=== PATIENT | female | born 1955 | race African-American/Black ===

== ENCOUNTER 2019-11-19 17:20 | Inpatient (IN) | payer MEDICARE, MEDICAID ==
[~2019-11-19] VITALS: Ht 165.1 cm; Wt 145.6 kg
[2019-11-19 18:45] LABS: Basophils # (auto) 0 10 ^3/uL (0-0.2); Basophils % (auto) 0.4 % (0.0-2.0); Eosinophils # (auto) 0.1 10 ^3/uL (0-0.8); Eosinophils % (auto) 1.8 % (0.0-7.0); Hematocrit 32.1 % (36.0-46.0); Hemoglobin 10.6 g/dL (12.2-16.2); Lymphocytes # (auto) 0.8 10 ^3/uL (0.4-5.4); Lymphocytes % (auto) 12.9 % (10.0-50.0); Mean Corpuscular Hgb Conc. 33.1 g/dL (32.0-36.0); Mean Corpuscular Volume 102.8 fL (80.0-100.0); Monocytes # (auto) 0.7 10 ^3/uL (0-1.3); Monocytes % (auto) 11.8 % (0.0-12.0); Neutrophils # (auto) 4.6 10 ^3/uL (1.6-8.6); Neutrophils % (auto) 73.1 % (37.0-80.0); Platelet Count (auto) 203 10^3/uL (140-450); Red Blood Cells 3.12 10^6/uL (4.0-5.20); Red Cell Distribution Width 14.2 % (11.8-14.3); White Blood Cell 6.2 10^3/uL (4.4-10.8)
[2019-11-19] MEDS ORDERED: ALBUTEROL SULF 2.5 MG/0.5ML(0.5%) NEB SOLN NEB ONE (18:45)
[2019-11-19] MEDS ORDERED: IPRATROPIUM BROM 0.5 MG/2.5ML INH SOL NEB ONE (18:45)
[2019-11-19] MEDS ORDERED: ACETAMINOPHEN 325 MG TAB PO ONE (18:45)
[2019-11-19 19:00] LABS: INR 1.02 (0.9-1.15); Partial Thromboplastin Time 26.6 sec (23.64-32.05)
[2019-11-19 19:05] LABS: Albumin 3.4 g/dL (3.4-5.0); Calcium 8.5 mg/dL (8.5-10.1); Magnesium 2.2 mg/dL (1.6-2.6); Potassium 4.2 mmol/L (3.5-5.1)
[2019-11-19 19:10] LABS: BUN/Creatinine Ratio 4.1; Bilirubin, Total 0.4 mg/dL (0.2-1.0); Total Protein 8.6 g/dL (6.4-8.2)
[2019-11-19] MEDS ORDERED: FUROSEMIDE 40 MG/4 ML VIAL IV ONE (20:30)
[2019-11-19] MEDS ORDERED: NITROGLYCERIN 0.4 MG SL TAB SL PRN (21:45)
[2019-11-19] MEDS ORDERED: ONDANSETRON HCL 4 MG/2 ML VIAL IV PRN (21:45)
[2019-11-19] MEDS ORDERED: ENOXAPARIN SOD 100 MG/1 ML SYRINGE SC ONE (21:45)
[2019-11-19] MEDS ORDERED: MORPHINE SULF INJ 2 MG/ML SYRINGE 1ML IV PRN (21:45)
[2019-11-19] MEDS ORDERED: TEMAZEPAM 15 MG CAP PO PRN (21:45)
[2019-11-19] MEDS ORDERED: DEXTROSE (50%) 50ML SYRG IV PRN (21:45)
[2019-11-19 23:00] VITALS: BP 91/56
--- NOTE | 2019-11-19 23:00 | NUR ---
Telemetry admit from [facility] admitted to Telemetry unit. Patient oriented to room, bed, and unit policies regarding patient care and visiting hours. Patient now on continuous telemetry monitoring, tele box # 60 and telemetry reading on arrival to unit is [facility]. Patient placed on bedside oxygen, weighed by bedscale and encouraged to call if they need something. All questions and concerns addressed, patient verbalized understanding.
--- NOTE | 2019-11-19 23:45 | NUR ---
Respiratory note: PT SEEN AND ASSESSED FOR PRN MED NEB TX AT 2345. TX IS NOT INDICATED AT THIS TIME, PT IS CURRENTLY SLEEPING WITH NO SIGNS OF DISTRESS. HR 111 RR 18 SP02 98% ON 2L NASAL CANNULA.
[2019-11-19] MEDS: ATORVASTATIN 20 MG TAB PO SCH (23:51)
[2019-11-19] MEDS: ACCU-CHEK COMFORT CURVE STRIP VI SCH (23:52)
[2019-11-20] VITALS (9 sets, daily range): BP systolic 90–149; BP diastolic 42–87
--- NOTE | 2019-11-20 04:11 | NUR ---
UNABLE TO OBTAIN PATIENT'S CURRENT MEDICATION LIST AT THIS TIME. PATIENT ONLY RESPONDING TO SOME YES OR NO QUESTIONS. PATIENT STATES THEY CANNOT REMEMBER WHAT MEDICATIONS THEY TAKE. WILL ATTEMPT AT A LATER TIME.
[2019-11-20] MEDS: InsuLIN REG 1unit/0.01ml Soln (100units/ml) SC SCH ×4 (06:00→18:11)
[2019-11-20] MEDS: ACCU-CHEK COMFORT CURVE STRIP VI SCH ×3 (06:03→18:12)
[2019-11-20] MEDS: FUROSEMIDE 40 MG/4 ML VIAL IV SCH ×2 (06:03→18:12)
[2019-11-20] MEDS: SEVELAMER 800 MG TAB PO SCH ×3 (08:56→18:11)
[2019-11-20] MEDS: cefTRIAXone 1GM/50ML D5W 50 ML IV SCH (08:56)
[2019-11-20] MEDS: ACETAMINOPHEN 325 MG TAB PO PRN ×2 (08:57→21:52)
[2019-11-20] MEDS: B-COMPLEX W/ C & FOLIC ACID(NEPHROVITE TAB) PO SCH (09:33)
[2019-11-20] MEDS: PANTOPRAZOLE 40 MG TAB PO SCH (09:33)
[2019-11-20] MEDS: METOPROLOL TARTRATE 25 MG TAB PO SCH ×2 (09:45→10:00)
[2019-11-20] MEDS ORDERED: ASPirin 81 mg TAB PO SCH (10:00)
[2019-11-20] MEDS ORDERED: LOSARTAN POTASSIUM 25 MG TAB PO SCH (10:00)
[2019-11-20] MEDS ORDERED: METOPROLOL TARTRATE 25 MG TAB PO SCH (10:00)
--- NOTE | 2019-11-20 10:04 | NUR ---
Respiratory note: ASSESSED PT FOR PRN MEDNEB TX. HR 108, RR 20, SPO2 97% ON 3LPM NASAL CANNULA. BREATH SOUNDS CLEAR THROUGHOUT. PT DENIES ANY SOB. NO S/S OF RESPIRATORY DISTRESS NOTED. MEDNEB TX NOT INDICATED AT THIS TIME. PT AWARE OF PRN MEDNEB TXS, ADVISED PT TO CALL FOR RT IF NEEDED. PT VERBALIZED UNDERSTANDING.
[2019-11-20 10:11] LABS: Basophils # (auto) 0 10 ^3/uL (0-0.2); Basophils % (auto) 0.5 % (0.0-2.0); Eosinophils # (auto) 0.1 10 ^3/uL (0-0.8); Lymphocytes # (auto) 1.3 10 ^3/uL (0.4-5.4); Monocytes # (auto) 1.1 10 ^3/uL (0-1.3); Neutrophils # (auto) 2.9 10 ^3/uL (1.6-8.6); Nucleated Red Blood Cells % 0.1 %; Red Cell Distribution Width 14.1 % (11.8-14.3); White Blood Cell 5.4 10^3/uL (4.4-10.8)
[2019-11-20 10:13] LABS: Eosinophils % (auto) 1.3 % (0.0-7.0); Hematocrit 29.4 % (36.0-46.0); Hemoglobin 9.9 g/dL (12.2-16.2); Lymphocytes % (auto) 24.6 % (10.0-50.0); Mean Corpuscular Hemoglobin 34.5 pg (28.0-32.0); Mean Corpuscular Hgb Conc. 33.6 g/dL (32.0-36.0); Mean Corpuscular Volume 102.5 fL (80.0-100.0); Neutrophils % (auto) 53.3 % (37.0-80.0); Platelet Count (auto) 193 10^3/uL (140-450); Red Blood Cells 2.87 10^6/uL (4.0-5.20)
[2019-11-20 10:25] LABS: Monocytes % (auto) 20.3 % (0.0-12.0)
[2019-11-20 11:05] LABS: Albumin 3.1 g/dL (3.4-5.0); Calcium 8.7 mg/dL (8.5-10.1)
[2019-11-20 11:07] LABS: BUN/Creatinine Ratio 4.4
[2019-11-20 11:13] LABS: Bilirubin, Total 0.4 mg/dL (0.2-1.0); Potassium 4.4 mmol/L (3.5-5.1); Total Protein 7.9 g/dL (6.4-8.2)
[2019-11-20] MEDS: ALBUTEROL SULF 2.5 MG/0.5ML(0.5%) NEB SOLN NEB PRN (11:22)
--- NOTE | 2019-11-20 11:22 | NUR ---
Respiratory note: RT CALLED TO BEDSIDE. PT COMPLAINING OF SOB. MEDNEB TX GIVEN, PT TOLERATED WELL, NO ADVERSE REACTIONS NOTED. BREATH SOUNDS CLEAR/DIMINISHED. NO S/S OF RESPIRATORY DISTRESS NOTED. RN AT BEDSIDE.
[2019-11-20 12:06] LABS: Phosphorus 3.2 mg/dL (2.5-4.90); Uric Acid 3.7 mg/dL (2.6-6.0)
[2019-11-20] MEDS ORDERED: AZITHROMYCIN 250 MG TAB PO ONE ×2 (16:00→17:00)
--- NOTE | 2019-11-20 19:21 | NUR ---
Respiratory note: ASSESSMENT FOR PRN MED NEB TX. HR 99, SPO2 93% ON ROOM AIR, RR 16, BS DIMINISHED. PT PRESENTING NO RESPIRATORY DISTRESS AT THIS TIME, SLEEPING COMFORTABLY. MED NEB TX NOT INDICATED. WILL CONTINUE TO MONITOR.
--- NOTE | 2019-11-20 19:41 | NUR ---
Opening Shift Note Assumed care of patient. Pt awake, alert and orientated x [address]. No S/S of distress/SOB or pain. Bed is in lowest position with side rails up x 2. Bed brakes are locked and call light is with in reach. Hob is 30 degrees. Instructed on POC and to call for assist PRN, will continue to monitor for changes Q1hr and PRN.
[2019-11-20] MEDS: DOXYCYCLINE 100 MG TAB/CAP PO SCH (21:53)
[2019-11-20] MEDS: ATORVASTATIN 20 MG TAB PO SCH (21:53)
[2019-11-21] VITALS (32 sets, daily range): BP systolic 59–139; BP diastolic 40–74
[2019-11-21] MEDS: ACCU-CHEK COMFORT CURVE STRIP VI SCH ×4 (00:40→17:53)
[2019-11-21] MEDS: FUROSEMIDE 40 MG/4 ML VIAL IV SCH ×3 (06:00→17:53)
[2019-11-21] MEDS: InsuLIN REG 1unit/0.01ml Soln (100units/ml) SC SCH ×4 (06:00→17:48)
[2019-11-21] MEDS ORDERED: SODIUM CHL 0.9% 1000 ML BAG XX ONE (07:00)
--- NOTE | 2019-11-21 07:50 | NUR ---
OPENING NOTE ASSUMED CARE OF PT. ALERT AND ORIENTED. NO S/S OF SOB/DISTRESS NOTED. SAFETY PRECAUTIONS IN PLACE. BED SET TO LOWEST POSITION/LOCKED, BEDSIDE RAILS UP X2, CALL LIGHT WITHIN REACH. INSTRUCTED PT TO CALL FOR ASSISTANCE. UPDATED ON POC. PT VERBALIZED UNDERSTANDING. WILL CONTINUE TO MONITOR Q1HR AND PRN. Addendum: 11/21/19 at 1136 by Britney Hernandez RN WRONG PATIENT
[2019-11-21] MEDS: SEVELAMER 800 MG TAB PO SCH ×3 (08:00→17:56)
--- NOTE | 2019-11-21 08:17 | NUR ---
Respiratory note: ASSESSMENT FOR PRN MED NEB TX. HR 90, SPO2 94% ON ROOM AIR, RR 18, BS DIMINISHED. PT PRESENTING NO RESPIRATORY DISTRESS AT THIS TIME, SLEEPING COMFORTABLY. MED NEB TX NOT INDICATED. PATIENT KNOWS TO HAVE RT PAGED IF TX IS NEEDED.
[2019-11-21 08:48] LABS: Basophils # (auto) 0 10 ^3/uL (0-0.2); Basophils % (auto) 0.5 % (0.0-2.0); Eosinophils # (auto) 0 10 ^3/uL (0-0.8); Eosinophils % (auto) 0.8 % (0.0-7.0); Hemoglobin 10.3 g/dL (12.2-16.2); Lymphocytes # (auto) 1.6 10 ^3/uL (0.4-5.4); Monocytes # (auto) 0.6 10 ^3/uL (0-1.3); Neutrophils # (auto) 3.3 10 ^3/uL (1.6-8.6); Nucleated Red Blood Cells % 0.1 %
[2019-11-21 08:51] LABS: Hematocrit 31.1 % (36.0-46.0); Lymphocytes % (auto) 28.2 % (10.0-50.0); Mean Corpuscular Hemoglobin 33.9 pg (28.0-32.0); Mean Corpuscular Volume 102.9 fL (80.0-100.0); Monocytes % (auto) 10.7 % (0.0-12.0); Neutrophils % (auto) 59.8 % (37.0-80.0); Platelet Count (auto) 143 10^3/uL (140-450); Red Blood Cells 3.02 10^6/uL (4.0-5.20); Red Cell Distribution Width 14.2 % (11.8-14.3); White Blood Cell 5.6 10^3/uL (4.4-10.8)
[2019-11-21] MEDS: cefTRIAXone 1GM/50ML D5W 50 ML IV SCH (09:00)
[2019-11-21 09:06] LABS: Albumin 3.4 g/dL (3.4-5.0); BUN/Creatinine Ratio 4.6; Calcium 8.2 mg/dL (8.5-10.1); Potassium 4.2 mmol/L (3.5-5.1)
[2019-11-21 09:15] LABS: Bilirubin, Total 0.3 mg/dL (0.2-1.0); Total Protein 8.5 g/dL (6.4-8.2)
[2019-11-21] MEDS ORDERED: AZITHROMYCIN 250 MG TAB PO SCH (10:00)
[2019-11-21] MEDS: ASPirin 81 mg TAB PO SCH (10:31)
[2019-11-21] MEDS: B-COMPLEX W/ C & FOLIC ACID(NEPHROVITE TAB) PO SCH (10:31)
[2019-11-21] MEDS: ENOXAPARIN SOD 30 MG/0.3 ML SYRINGE SC SCH (10:31)
[2019-11-21] MEDS: PANTOPRAZOLE 40 MG TAB PO SCH (10:32)
[2019-11-21] MEDS: DOXYCYCLINE 100 MG TAB/CAP PO SCH ×2 (10:32→21:24)
[2019-11-21] MEDS: METOPROLOL TARTRATE 25 MG TAB PO SCH (10:33)
--- NOTE | 2019-11-21 11:12 | NUR ---
Shift opening note Assumed care of patient. Pt is a middle of the dialysis process. She is awake, alert, and orientated x 4. Hemodynamic parameters are within normal limits. No S/S of distress/SOB or pain. Bed side rails up x 2. Bed brakes are locked and call light is within reach. Hob is 30 degrees. POC was discussed with the patient and patient was instructed to call for assistance PRN. Will continue to monitor for changes Q1hr and PRN.
[2019-11-21 11:40] LABS: Urine Bacteria FEW /hpf (None Seen); Urine Blood 1+ /uL (Negative); Urine Hyaline Cast MANY /lpf (0 - 2); Urine Specific Gravity 1.023 (1.001-1.035); Urine WBC 93 /hpf (0 - 5)
[2019-11-21 12:07] LABS: Hepatitis B Surface Antibody Negative
[2019-11-21 12:17] LABS: Hepatitis A Total Antibody Negative
[2019-11-21 13:09] LABS: Hepatitis A Ab IgM Negative
[2019-11-21 13:10] LABS: Hepatitis B Core IgM Negative; Hepatitis B Core Total AB Negative; Hepatitis B Surface Antigen Negative (Negative); Hepatitis C Antibody Negative (Negative)
[2019-11-21] MEDS ORDERED: SODIUM CHLORIDE 0.9% 250 ML IV ONE (13:45)
--- NOTE | 2019-11-21 14:00 | NUR ---
PAGED DR. GARRETT RE: BP 70/60, AWAITING CALL BACK. WILL CONTINUE TO MONITOR.
--- NOTE | 2019-11-21 14:15 | NUR ---
Midline Placement: Patient educated on need for midline placement. All risks and benefits explained and all questions and concerns addresses prior to procedure. 18g/10cm midline inserted via right cephalic vein using Ultrasound. Sterile technique utilized. Blood return obtained from lumen and flushed easily with NS using proper technique. Midline secured with saline lock; biodisc and occlusive dressing applied. Primary RN notified. Midline lot #[id number]
--- NOTE | 2019-11-21 14:30 | NUR ---
SPOKE TO DR. GARRETT RE: BP 70/60. NEW ORDERS GIVEN/CARRIED OUT.
--- NOTE | 2019-11-21 15:00 | NUR ---
BP 1500: REASSESSED 83/57 1515: REASSESSED 8850 1530: REASSESSED PAGED DR. GARRETT RE: BP , NEW ORDERS GIVEN TO TRANSFER TO ICU.
--- NOTE | 2019-11-21 16:00 | NUR ---
TRANSFER PATIENT IS BEING TRANSFER TO ICU, ROOM 110 WITH YURI SABILLON. REPORT GIVEN TO RN.
--- NOTE | 2019-11-21 16:30 | NUR ---
RECEIVED PATIENT FROM TELEMETRY BLOOD PRESSURE WITH MAP < 60 STARTED LEVOPHED AT 2 MCG/MIN.
[2019-11-21] MEDS: NOREPINEPHRINE 8 MG/250ML KIT 250 ML IV SCH (16:49)
--- NOTE | 2019-11-21 18:39 | NUR ---
PATIENT ALERT AND ORIENTED UNABLE TO SPEAK DUE TO HIS TRACHEOSTOMY WHICH PATIENT IS COUBHING THICK YELLOW SPUTUM. PATIENT REMAINED COARSE AFEBRILE. TRACH COLLAR 30 % #8 SHILEY OXYGEN SAT 100 % PATIENT TOLERATING 30 % OF FI02 WITHOUT THE VENTILATOR.NGT INTACT DR BERNARDO CRUZ AND D/C TF BUT KEPT THE NGT. PATIENT ON ASPIRATION PRECAUTIONS. TOLERATING PUREED DIET AT BREAKFAST BUT ONLY ATE 10% FOR LUNCH. STALLWORTH CATHETER DRAINING DARK RICA COLOR URINE. Addendum: 11/21/19 at 1852 by Alysa Gonzales RN RN THIS NOTE IS SUPPOSE TO BE ON MR LAINEZ Addendum: 11/21/19 at 1857 by Alysa Gonzales RN RN AMEND NOTE WRONG PATIENT DISREGARD LAST NOTE.
--- NOTE | 2019-11-21 18:45 | NUR ---
PT CHECKED FOR PRN TX. PT IS RESTING WITH NO ACUTE DISTRESS NOTED. TX IS NOT INDICATED AT THIS TIME. HR 91 RR 20 POX 99% ON 4LNC. B/S DECREASED WITH CRACKLES. WILL CHECK BACK ON PT.
--- NOTE | 2019-11-21 20:00 | NUR ---
ADMITTED WITH ELEVATED TROPONIN LEVELS, DYSPNEA, COARSE COUGH AND LOWER EXTREMITY SWELLING. ALERT. ORIENTED. SPEECH IS CLEAR. ON 4LNP. O2 SAT 100%. DECREASED THE OXYGEN TO 1LNP. NOW THE O2 SATURATION IS 98%. WHEN SHE COUGHS, SHE DESATURATES. LUNGS DIMINISHED AND SLIGHTLY COARSE. NSR WITHOUT ECTOPY. BORDERLINE 1ST DEGREE AV BLOCK. RENAL DIET: REFUSED HER DINNER TRAY AND LATER ASKED FOR TEA AND RUPINDER CRACKERS. OLIGURIC. BILATERAL LEG SWELLING 2+. ALL PULSES PALPABLE. LEFT UPPER ARM FISTULA WITH + THRILL AND BRUIT. HAS A NEW MIDLINE TODAY IN THE RIGHT UPPER ARM. LEVOPHED AT 0.5. LEELA CATHETER IN THE RIGHT UPPER CHEST. WAS ON THE FLOOR AND DROPPED HER BLOOD PRESSURE DURING DIALYSIS. PLACED ON LEVOPHED AND BROUGHT HERE. DIALYSIS REMOVED 2.8 LITERS OF FLUID. DIETARY EDUCATION GIVEN.
[2019-11-21] MEDS ORDERED: EPOETIN ALFA 4,000 UNIT/ML VL SC ONE (21:00)
--- NOTE | 2019-11-21 22:00 | NUR ---
HELPED HER WITH TURNING ON THE TV AND CHANGING CHANNELS. NONPRODUCTIVE COUGH. COARSE COUGH. NO NAUSEA. 1 LNP WITH O2 SATURATION OF 97%. LEVOPHED REMAINS AT .5 MCG/MIN. SYSTOLIC BP BETWEEN 104 AND 110.
[2019-11-22] VITALS (65 sets, daily range): BP systolic 94–128; BP diastolic 19–84
--- NOTE | 2019-11-22 | NUR ---
AWAKE. DENIES PAIN. FOOT RUB GIVEN. NSR WITHOUT ECTOPY. LUNGS DIMINISHED. NONPRODUCTIVE COARSE COUGH. SPEECH CLEAR. ALL PULSES PALPABLE.BORDERLINE FIRST DEGREE AV BLOCK. HAS NOT VOIDED YET
[2019-11-22] MEDS: ACCU-CHEK COMFORT CURVE STRIP VI SCH ×5 (00:24→23:54)
--- NOTE | 2019-11-22 02:00 | NUR ---
UP TO COMMODE. HAD A SMALL BM AND A SMALL VOID. USED HER WALKER TO GET UP. STABLE ON HER FEET. SHE NEEDS HELP GETTING UP TO A SITTING POSITION AND A LYING POSITION. C/O OF SOME NAUSEA. REFUSED ZOFRAN. EMESIS BAG NEAR LEFT HAND. LEVOPHED OFF. NO CHANGE IN HER PITTING EDEMA. ALL EXTREMITIES WARM. ALL PULSES ARE PALPABLE.
--- NOTE | 2019-11-22 03:10 | NUR ---
AM LABS DRAWN.
--- NOTE | 2019-11-22 04:00 | NUR ---
SMALL EMESIS. REFUSING BATH. IS ON CLEAN LINENS.
--- NOTE | 2019-11-22 05:33 | NUR ---
IRREGULAR BREATHING PATTERN. RR 25-40, UP AND DOWN. OCCASIONALLY THE SATURATIONS FOLLOW THE UP AND DOWN PATTERN. SLEEPING AT THE MOMENT.
[2019-11-22] MEDS: InsuLIN REG 1unit/0.01ml Soln (100units/ml) SC SCH ×5 (06:00→23:53)
[2019-11-22] MEDS: FUROSEMIDE 40 MG/4 ML VIAL IV SCH ×2 (06:00→17:23)
--- NOTE | 2019-11-22 06:00 | NUR ---
ACCUCHECK NORMAL. HELD LASIX DUE TO LOWER BLOOD PRESSURE AND THE FACT THAT SHE IS FRESHLY OFF OF LEVOPHED.
--- NOTE | 2019-11-22 06:33 | NUR ---
Respiratory note: ROUTINE PRN ASSESSMENT DONE. HR 107, RR 20, POX 94%, BS ARE CLR. NO SOB OR DISTRESS NOTED AT THIS TIME. PT WAS NOTIFY TO HAVE RN PAGE RT FOR MN TX.
[2019-11-22] MEDS: SEVELAMER 800 MG TAB PO SCH ×2 (08:00→08:11)
[2019-11-22] MEDS: cefTRIAXone 1GM/50ML D5W 50 ML IV SCH (08:11)
--- NOTE | 2019-11-22 10:18 | NUR ---
Patient refused to eat today and refused her renagel po. this morning
[2019-11-22] MEDS: B-COMPLEX W/ C & FOLIC ACID(NEPHROVITE TAB) PO SCH (10:29)
[2019-11-22] MEDS: DOXYCYCLINE 100 MG TAB/CAP PO SCH ×2 (10:29→22:18)
[2019-11-22] MEDS: METOPROLOL TARTRATE 25 MG TAB PO SCH (10:31)
[2019-11-22] MEDS: ASPirin 81 mg TAB PO SCH (10:31)
[2019-11-22] MEDS: PANTOPRAZOLE 40 MG TAB PO SCH (10:31)
[2019-11-22] MEDS: ENOXAPARIN SOD 30 MG/0.3 ML SYRINGE SC SCH (10:32)
--- NOTE | 2019-11-22 11:10 | NUR ---
Patient was seen by Dr Paz and notified of the ct scan not done but tomorrow. Dr Paz wanted the ct chest with contrast done today Dr Baxter was notified and he agreed to have the chest ct done [facility] because she will be dialyzed on Monday . Consent was signed by the patient ant procedure was done .
[2019-11-22] MEDS ORDERED: IOHEXOL 350 MG/ML 100ML IJ ONE (11:28)
[2019-11-22 12:40] LABS: BUN/Creatinine Ratio 5.3; Calcium 8.1 mg/dL (8.5-10.1); Potassium 4.6 mmol/L (3.5-5.1)
[2019-11-22 12:43] LABS: Bilirubin, Total 0.4 mg/dL (0.2-1.0); Total Protein 7.6 g/dL (6.4-8.2)
--- NOTE | 2019-11-22 15:00 | NUR ---
DR BOB CALLED RE: PATIENT NOTIFIED OF THE CT CHEST RESULT WITH ANGIO AND HE GAVE ORDERS FOR THE PATIENT
[2019-11-22] MEDS: NOREPINEPHRINE 8 MG/250ML KIT 250 ML IV SCH (16:23)
--- NOTE | 2019-11-22 18:15 | NUR ---
RT NOTE PT WAS SEEN BY RT FOR HHN AND CPT TX. PT TOLERATES HHN WELL VIA MASK WITHOUT ADVERSE REACTION NOTED. PT TOLERATED 15 MINUTES OF CPT DONE WITH THE PERCUSSION MODE ON THE BED WELL. PT HAS A NOTED PRODUCTIVE COUGH. CONT ORDERED Addendum: 11/22/19 at 1917 by Ora Mayers RT Amended: Links added.
[2019-11-22] MEDS: ALBUTEROL SULF 2.5 MG/0.5ML(0.5%) NEB SOLN NEB SCH ×2 (18:20→22:33)
--- NOTE | 2019-11-22 18:27 | NUR ---
DR FARIAS WAS NOTIFIED OF THE LABS RESULT PATIENT WILL HAVE DIALYSIS IN THE MORNING.
--- NOTE | 2019-11-22 19:25 | NUR ---
report received from Josephine smith
--- NOTE | 2019-11-22 20:29 | NUR ---
received from Mrs Christian WELCH stabel, alert and oriented. No sob observed
--- NOTE | 2019-11-22 22:26 | NUR ---
RT NOTE PT WAS SEEN BY RT FOR HHN AND CPT. PT TOLERATES HHN WELL VIA MASK. CPT DONE WITH MODE ON BED. PT TOLERATES WELL. PT HAS A NOTED PRODUCTIVE COUGH. ENCOURAGED PT TO SPIT OUT PHLEGM NOT SWALLOW IT. CONT ORDERED Addendum: 11/22/19 at 2305 by Ora Mayers RT Amended: Links added.
[2019-11-22] MEDS: ACETYLCYSTEINE 10 %(100MG/ML) SOL 4ML NEB SCH (22:33)
[2019-11-23] VITALS (48 sets, daily range): BP systolic 88–123; BP diastolic 40–89
--- NOTE | 2019-11-23 01:56 | NUR ---
RT NOTE PT WAS SEEN BY RT FOR HHN AND CPT TX. PT TOLERATE WELL VIA MASK. PT TOLERATES CPT WITH MODE ON BED. CONT ORDERED Addendum: 11/23/19 at 0340 by Ora Mayers RT Amended: Links added.
[2019-11-23] MEDS: ALBUTEROL SULF 2.5 MG/0.5ML(0.5%) NEB SOLN NEB SCH ×6 (02:07→21:54)
--- NOTE | 2019-11-23 03:15 | NUR ---
Sleeping on rouns and in no acute resp. distress
[2019-11-23 04:39] LABS: Albumin 3.1 g/dL (3.4-5.0); Potassium 4.6 mmol/L (3.5-5.1)
[2019-11-23 04:50] LABS: BUN/Creatinine Ratio 5.2; Bilirubin, Total 0.4 mg/dL (0.2-1.0); Calcium 8.4 mg/dL (8.5-10.1); Total Protein 7.8 g/dL (6.4-8.2)
[2019-11-23] MEDS: FUROSEMIDE 40 MG/4 ML VIAL IV SCH ×2 (05:42→18:00)
[2019-11-23] MEDS: InsuLIN REG 1unit/0.01ml Soln (100units/ml) SC SCH ×3 (05:43→18:00)
[2019-11-23] MEDS: ACETYLCYSTEINE 10 %(100MG/ML) SOL 4ML NEB SCH ×3 (06:08→21:54)
[2019-11-23] MEDS: ACCU-CHEK COMFORT CURVE STRIP VI SCH ×3 (06:14→18:00)
--- NOTE | 2019-11-23 06:15 | NUR ---
pT IS OBESE AND BARELY CAN TURN HERSELF. ABLE TO TURN WITH NURSE ASSISTANCE EVERY 2 HOURS. REPOSITIONED WITH ASSISTANCE. GIVEN COMPLETE BATH, GOOD PERINILA CARE AND TOTAL LINEN CHANGE. mIDLINE IS INTACT AND PATENT. NO SEVERE SOB
--- NOTE | 2019-11-23 07:59 | NUR ---
RECEIVED REPORT FROM THE TALENT DEVELOPMENT DIRECTOR. PATIENT SLEEPING COMFORTABLY REMAINED ON OXYGEN AT 2 LITERS/ NC . PATIENT REFUSED BREAKFAST AND SAID SHE JUST WANTED FRUITS DIETARY WAS NOTIFIED. PATIENT HAD CHEST XRAY DONE AT THE BEDSIDE.
[2019-11-23] MEDS: cefTRIAXone 1GM/50ML D5W 50 ML IV SCH (08:33)
[2019-11-23] MEDS: METOPROLOL TARTRATE 25 MG TAB PO SCH (10:00)
[2019-11-23] MEDS: PANTOPRAZOLE 40 MG TAB PO SCH (10:13)
[2019-11-23] MEDS: DOXYCYCLINE 100 MG TAB/CAP PO SCH ×2 (10:13→21:35)
[2019-11-23] MEDS: B-COMPLEX W/ C & FOLIC ACID(NEPHROVITE TAB) PO SCH (10:13)
[2019-11-23] MEDS: ASPirin 81 mg TAB PO SCH (10:13)
[2019-11-23] MEDS: SEVELAMER 800 MG TAB PO SCH ×3 (10:13→18:40)
[2019-11-23] MEDS: ENOXAPARIN SOD 30 MG/0.3 ML SYRINGE SC SCH (10:14)
[2019-11-23] MEDS: FLORASTOR (S. BOULARDII) 250 MG CAP PO SCH (12:53)
--- NOTE | 2019-11-23 18:26 | NUR ---
DIALYSIS NURSE CAME AND STARTED THE PROCEDURE. THE HD NURSE SAID THAT HE USED THE SC LEELA CATH .
--- NOTE | 2019-11-23 18:33 | NUR ---
PATIENT HAD 3 LOOSE STOOLS TO . UNABLE TO SEND STOOL FOR C DIFF DUE TO THE STOOL BEING FOERMED
--- NOTE | 2019-11-23 19:30 | NUR ---
Opening Shift Note Assumed care of patient, awake and alert, lying in bed with high umaña, H/D ongoing via a Santana catheter at the right subclavian. Breathing on O2NC 2LPM, slightly shallow breathing and diminished lung sounds, No S/S of distress/SOB, occasional cough. Encouraged a deep breathing exercise, Pt complied well. Denied pain. Mid-line at right upper arm, flushed well with blood return, CDI site. Bed in low position, call light within reach, fall and safety precaution in place, all alarms are audible. Instructed on POC, procedure and to call for assist PRN, will continue to monitor for changes Q1hr and PRN.
--- NOTE | 2019-11-23 20:09 | NUR ---
H/D done H/D nurse reported 2L output from H/D. Pt's condition and VSS.
--- NOTE | 2019-11-23 20:20 | NUR ---
Dinner Provided Pt with dinner after heat the food. Pt independent while eating. Condition stable, occasionally cough. Continue care. Addendum: 11/24/19 at 0027 by Cesar Montalvo RN Pt ate main dish ~60%. Half a cup of tea. Tolerated well.
--- NOTE | 2019-11-23 21:55 | NUR ---
Vomiting Pt vomited food after dinner. Pt refused vomiting medicine. Pt wanted to vomit out so that she feels better. Other condition stable. Recommended Pt to small frequent meal instead, Pt verbalized understanding. Continue care.
--- NOTE | 2019-11-23 22:26 | NUR ---
Respiratory note: PT REFUSE MED NEB AT THIS TIME. PT SAYS SHE VOMITED PRIOR TO REFUSING. STATES SHE WILL TAKE HER NEXT SCHEDULED MED NEB. NO DISTRESS NOTED. PULSE OX 97% ON 2LNC, HR 116, RR 20
--- NOTE | 2019-11-23 22:50 | NUR ---
Condition update VSS and condition stable. Eliza pad checked, no BM. Partial linen and eliza pad changed. Pt able to help turn in bed slowly. Mouth care done by self after equipment provided. Denture cleaned for Pt and put in denture's cup. Continue care.
--- NOTE | 2019-11-23 23:45 | NUR ---
Bed assignment/ report given [id number] received. Notified Pt. Report given to Antonia WELCH. Pt's belonging, including mobile phone, denture are transferred with Pt. Pt transferred by bed with portable oxygen and telemetry box attached. Pt's condition stable. Leave the unite at 00.10am.
[2019-11-24] MEDS: ACCU-CHEK COMFORT CURVE STRIP VI SCH ×4 (00:19→18:00)
[2019-11-24] MEDS: ALBUTEROL SULF 2.5 MG/0.5ML(0.5%) NEB SOLN NEB SCH ×6 (03:15→22:04)
[2019-11-24] MEDS: InsuLIN REG 1unit/0.01ml Soln (100units/ml) SC SCH ×4 (06:00→18:00)
[2019-11-24] MEDS: FUROSEMIDE 40 MG/4 ML VIAL IV SCH (06:14)
[2019-11-24] MEDS: ACETYLCYSTEINE 10 %(100MG/ML) SOL 4ML NEB SCH ×3 (07:21→22:04)
--- NOTE | 2019-11-24 07:30 | NUR ---
OPENING SHIFT NOTE Care of patient assumed from NOC RN. Patient is AOx4, no S/S of distress, or SOB. Patient has no complaints of pain at this time. Bed is in lowest locked position, side rails up x2, safety precautions in place and call light is within reach. Patient educated on POC, verbalized understanding. Will continue to monitor q hr and PRN.
[2019-11-24] MEDS: SEVELAMER 800 MG TAB PO SCH ×3 (09:06→18:00)
[2019-11-24] MEDS: cefTRIAXone 1GM/50ML D5W 50 ML IV SCH (09:07)
[2019-11-24] MEDS: FLORASTOR (S. BOULARDII) 250 MG CAP PO SCH (09:07)
[2019-11-24] MEDS: DOXYCYCLINE 100 MG TAB/CAP PO SCH ×2 (09:07→22:44)
[2019-11-24] MEDS: B-COMPLEX W/ C & FOLIC ACID(NEPHROVITE TAB) PO SCH (09:07)
[2019-11-24] MEDS: ASPirin 81 mg TAB PO SCH (09:07)
[2019-11-24] MEDS: PANTOPRAZOLE 40 MG TAB PO SCH (09:10)
[2019-11-24] MEDS: ENOXAPARIN SOD 30 MG/0.3 ML SYRINGE SC SCH (09:11)
[2019-11-24] MEDS: METOPROLOL TARTRATE 25 MG TAB PO SCH (09:14)
--- NOTE | 2019-11-24 12:40 | NUR ---
Physician at bedside. Updated MD Paz on patient status, MD is aware. MD ordered physical therapy consult. Will follow through with orders.
--- NOTE | 2019-11-24 19:15 | NUR ---
END OF SHIFT NOTE. Endorsed care to NOC YURI Perez. Patient has no s/s of SOB, pain, or distress at this time.
--- NOTE | 2019-11-24 19:29 | NUR ---
Opening Shift Note Received report and assumed care of patient. Patient is awake and alert. No signs or symptoms of distress noted, patient currently denies pain. Instructed patient on plan of care and to call for assistance as needed. Will continue to monitor.
[2019-11-24 22:00] VITALS: BP 123/66
--- NOTE | 2019-11-24 22:45 | NUR ---
Patient refusing stress test/ Patient refusing stress test, states she had one in July of 2019. Will call Dr. Llamas to provide further education to patient regarding stress test. Explained to patient, patient would like to speak with MD in morning. Patient agreed to remain NPO after midnight in case she agrees to proceed with stress test.
[2019-11-25] MEDS: ALBUTEROL SULF 2.5 MG/0.5ML(0.5%) NEB SOLN NEB SCH ×3 (03:12→10:00)
--- NOTE | 2019-11-25 03:12 | NUR ---
RT NOTE: PT SLEEPING @ THIS TIME AND MED NEB TX NOT GIVEN. NO SOB OR DISTRESS NOTED.
[2019-11-25 05:39] VITALS: BP 117/72
[2019-11-25] MEDS: InsuLIN REG 1unit/0.01ml Soln (100units/ml) SC SCH ×5 (06:00→23:36)
[2019-11-25 06:02] LABS: Basophils # (auto) 0 10 ^3/uL (0-0.2); Basophils % (auto) 0.3 % (0.0-2.0); Eosinophils # (auto) 0.2 10 ^3/uL (0-0.8); Eosinophils % (auto) 3.5 % (0.0-7.0); Hematocrit 31.4 % (36.0-46.0); Hemoglobin 10.6 g/dL (12.2-16.2); Lymphocytes # (auto) 1.1 10 ^3/uL (0.4-5.4); Lymphocytes % (auto) 17.7 % (10.0-50.0); Mean Corpuscular Hemoglobin 34.4 pg (28.0-32.0); Mean Corpuscular Hgb Conc. 33.6 g/dL (32.0-36.0); Mean Corpuscular Volume 102.2 fL (80.0-100.0); Monocytes # (auto) 0.9 10 ^3/uL (0-1.3); Monocytes % (auto) 13.9 % (0.0-12.0); Neutrophils % (auto) 64.6 % (37.0-80.0); Platelet Count (auto) 187 10^3/uL (140-450); Red Blood Cells 3.07 10^6/uL (4.0-5.20); Red Cell Distribution Width 13.8 % (11.8-14.3); White Blood Cell 6.2 10^3/uL (4.4-10.8)
[2019-11-25] MEDS: ACETYLCYSTEINE 10 %(100MG/ML) SOL 4ML NEB SCH ×3 (06:15→22:00)
[2019-11-25 06:33] LABS: Albumin 3.3 g/dL (3.4-5.0); BUN/Creatinine Ratio 4.3; Calcium 8.8 mg/dL (8.5-10.1); Potassium 4.3 mmol/L (3.5-5.1)
[2019-11-25 06:36] LABS: Bilirubin, Total 0.5 mg/dL (0.2-1.0)
[2019-11-25] MEDS: ACCU-CHEK COMFORT CURVE STRIP VI SCH ×5 (06:36→23:36)
[2019-11-25] MEDS: SEVELAMER 800 MG TAB PO SCH ×3 (08:00→18:00)
[2019-11-25 08:23] VITALS: BP 104/60
[2019-11-25] MEDS: ASPirin 81 mg TAB PO SCH (09:28)
[2019-11-25] MEDS: FLORASTOR (S. BOULARDII) 250 MG CAP PO SCH (09:28)
[2019-11-25] MEDS: B-COMPLEX W/ C & FOLIC ACID(NEPHROVITE TAB) PO SCH (09:28)
[2019-11-25] MEDS: DOXYCYCLINE 100 MG TAB/CAP PO SCH ×2 (09:29→21:39)
[2019-11-25] MEDS: PANTOPRAZOLE 40 MG TAB PO SCH (09:29)
[2019-11-25] MEDS: ENOXAPARIN SOD 30 MG/0.3 ML SYRINGE SC SCH (09:30)
[2019-11-25] MEDS: METOPROLOL TARTRATE 25 MG TAB PO SCH (09:30)
[2019-11-25] MEDS: cefTRIAXone 1GM/50ML D5W 50 ML IV SCH (09:31)
--- NOTE | 2019-11-25 11:25 | NUR ---
Respiratory note: ASSESSED PT FOR PRN TX PT WAS AWAKE AND ALERT, NO RESP DISTRESS NOTED. HR 60, RR 16, SPO2 95% ON 4L NC. BS ARE CLEAR, NO INDICATION FOR TX AT THIS TIME. PT KNOWS TO HAVE RT PAGED IF TX IS NEEDED.
--- NOTE | 2019-11-25 12:00 | NUR ---
Physician at bedside MD Iverson at bedside, updated on patient status. ordered stat EKG, results given to MD. MD Iverson notified MD Llamas about results. Per MD Iverson patient can be discharged home tomorrow.
--- NOTE | 2019-11-25 12:04 | NUR ---
PT REPORTS THAT SHE HAS BEEN WALKING FINE WITHOUT SYMPTOMS. PT DECLINED P.T.
[2019-11-25 12:44] VITALS: BP 127/74
[2019-11-25] MEDS ORDERED: ALBUTEROL SULF 2.5 MG/0.5ML(0.5%) NEB SOLN NEB PRN (13:30)
[2019-11-25 16:56] VITALS: BP 112/66
--- NOTE | 2019-11-25 19:12 | NUR ---
END OF SHIFT NOTE. Endorsed care to NOC YURI Perez. Patient has no s/s of SOB, pain, or distress at this time.
[2019-11-25 22:00] VITALS: BP 103/59
--- NOTE | 2019-11-25 22:32 | NUR ---
RT NOTE: PT REFUSED SCHEDULED MUCOMYST TX @ THIS TIME. PT STATED SHE HAS NOT BEEN COUGHING MUCH TODAY. PT AWARE OF PRN TXS. SPO2 100% ON 2L NASAL CANNULA, HR 66, DIMINISHED BS. NO SOB OR DISTRESS NOTED. PT WILL PAGE FOR RT IF TX IS NEEDED.
[2019-11-26 05:00] VITALS: BP 101/60
[2019-11-26] MEDS: InsuLIN REG 1unit/0.01ml Soln (100units/ml) SC SCH ×3 (06:00→18:00)
[2019-11-26] MEDS: ACCU-CHEK COMFORT CURVE STRIP VI SCH ×3 (06:27→18:00)
[2019-11-26 06:57] LABS: Potassium 4.3 mmol/L (3.5-5.1)
[2019-11-26 07:04] LABS: Albumin 3.1 g/dL (3.4-5.0); BUN/Creatinine Ratio 4.1; Bilirubin, Total 0.5 mg/dL (0.2-1.0); Calcium 8.7 mg/dL (8.5-10.1); Total Protein 7.7 g/dL (6.4-8.2)
[2019-11-26] MEDS: ALBUTEROL SULF 2.5 MG/0.5ML(0.5%) NEB SOLN NEB PRN ×2 (07:08→14:41)
[2019-11-26] MEDS: ACETYLCYSTEINE 10 %(100MG/ML) SOL 4ML NEB SCH ×2 (07:08→14:41)
--- NOTE | 2019-11-26 07:30 | NUR ---
OPENING NOTE ASSUMED CARE OF PT. ALERT AND ORIENTED. NO S/S OF SOB/DISTRESS NOTED. SAFETY PRECAUTIONS IN PLACE. BED SET TO LOWEST POSITION/LOCKED, BEDSIDE RAIL UP X2, CALL LIGHT WITHIN REACH. INSTRUCTED PT TO CALL FOR ASSISTANCE. UPDATED ON POC. PT VERBALIZED UNDERSTANDING. WILL CONTINUE TO MONITOR Q1HR AND PRN.
[2019-11-26 08:00] VITALS: BP 87/57
[2019-11-26] MEDS: PANTOPRAZOLE 40 MG TAB PO SCH (08:37)
[2019-11-26] MEDS: DOXYCYCLINE 100 MG TAB/CAP PO SCH (08:37)
[2019-11-26] MEDS: FLORASTOR (S. BOULARDII) 250 MG CAP PO SCH (08:37)
[2019-11-26] MEDS: B-COMPLEX W/ C & FOLIC ACID(NEPHROVITE TAB) PO SCH (08:37)
[2019-11-26] MEDS: ASPirin 81 mg TAB PO SCH (08:37)
[2019-11-26] MEDS: cefTRIAXone 1GM/50ML D5W 50 ML IV SCH (08:37)
[2019-11-26] MEDS: METOPROLOL TARTRATE 25 MG TAB PO SCH (08:37)
[2019-11-26] MEDS: ENOXAPARIN SOD 30 MG/0.3 ML SYRINGE SC SCH (08:38)
[2019-11-26] MEDS: SEVELAMER 800 MG TAB PO SCH ×3 (08:40→18:00)
[2019-11-26 12:00] VITALS: BP 123/71
[2019-11-26 15:16] VITALS: BP 123/71
--- NOTE | 2019-11-26 16:10 | NUR ---
NUTRITION ASSESSMENT NOTES Please refer to link notes of nutrition screen form filed under the intervention section of the plan of care for further details. Est. Energy Needs: [id number] kcal (12-15 kcal/kg BW). Est. Protein Needs: 95-119 gms/day (1.2-1.4 gms/kg Adj.BW). Will continue to monitor pertinent labs and reassess nutrient need prn Addendum: 11/26/19 at [address] Amended: Links added.
--- NOTE | 2019-11-26 16:18 | NUR ---
TELE MONITOR TELE BOX #[id number] SENT BACK TO ICU. TELEPRINTER INSTALLER ROBERT IS AWARE.
--- NOTE | 2019-11-26 16:32 | NUR ---
DISCHARGE Discharge instructions given as ordered. Follow up with Dr. Iverson on 12/09/2019 at 3:15PM, [id number] [place] [address], Ext: [phone]. All questions and concerns addressed. Patient verbalized understanding. IV removed with catheter intact, pressure dressing applied. Telemetry unit returned to ICU.
--- NOTE | 2019-11-26 18:01 | NUR ---
Patient taken to vehicle via wheelchair with all personal belongings, accompanied by staff and family member. No distress noted at time of departure.
--- NOTE | 2019-11-27 17:01 | NUR ---
Baggage Smasher consult regarding resuming Home health. Pt was previously on service with [facility] and will be resuming with this service upon discharge. [facility] was contacted and information Faxed to [place]. Information received and services to resume upon discharge. Will notify covering nurse and RADHA II of the above. Fax number to [facility] [phone]. Phone number [phone].
== END 2019-11-26 17:58 | disposition home health service (06) | DRG 291 ==
LOC: ER 17:20 → TELE 17:21 → TELE-WESTW 23:02 → ICU WEST 11-21 16:13 → TELE-WESTW 11-24 00:10
PROVIDERS: ADMIT Nurse Practitioner; ATTEND Internal Medicine
PROC: 5A1D70Z Performance of Urinary Filtration, Intermittent, Less than 6 Hours Per Day (ICD-10-PCS; 2019-11-21)
PROC: 5A1D70Z Performance of Urinary Filtration, Intermittent, Less than 6 Hours Per Day (ICD-10-PCS; principal; 2019-11-23)
DX: I13.2 Hypertensive heart and chronic kidney disease with heart failure and with stage 5 chronic kidney disease, or end stage renal disease (principal); J18.9 Pneumonia, unspecified organism; J96.01 Acute respiratory failure with hypoxia; N18.6 End stage renal disease; I50.43 Acute on chronic combined systolic (congestive) and diastolic (congestive) heart failure; E87.1 Hypo-osmolality and hyponatremia; E44.0 Moderate protein-calorie malnutrition; R57.9 Shock, unspecified; J98.11 Atelectasis; R65.10 Systemic inflammatory response syndrome (SIRS) of non-infectious origin without acute organ dysfunction; Z68.43 Body mass index [BMI] 50.0-59.9, adult; E11.65 Type 2 diabetes mellitus with hyperglycemia; E66.01 Morbid (severe) obesity due to excess calories; D63.1 Anemia in chronic kidney disease; Z99.2 Dependence on renal dialysis; J20.9 Acute bronchitis, unspecified; Z95.1 Presence of aortocoronary bypass graft; Z99.81 Dependence on supplemental oxygen; I44.30 Unspecified atrioventricular block; G62.9 Polyneuropathy, unspecified
CPT/HCPCS: 36415; 36600; 71045; 71046; 71275; 76705; 80053; 80074; 81001; 82306; 82805; 82962; 83036; 83605; 83735; 83880; 83970; 84100; 84439; 84443; 84484; 84550; 85025; 85610; 85730; 86704; 86706; 86708; 86803; 87040; 87070; 87081; 87205; 87340; 87804; 90935; 93005; 93306; 94640; 94667; 94668; 96374; G0378; J0696; J1815; J2405